=== PATIENT | female | born 1965 | race Caucasian/White ===

== ENCOUNTER 2020-03-29 10:28 | Emergency (ER) | payer BC ==
[~2020-03-29] VITALS: Ht 162.6 cm; Wt 61.0 kg
[2020-03-29 10:30] VITALS: BP 167/104
== END 2020-03-29 17:06 | disposition home or self-care (01) ==
LOC: ER 10:28
DX: M71.21 Synovial cyst of popliteal space [Baker], right knee (principal); F17.290 Nicotine dependence, other tobacco product, uncomplicated
CPT/HCPCS: 93971; 99284; 99406